=== PATIENT | male | born 1955 | race Caucasian/White ===

== ENCOUNTER → 2016-11-28 | Outpatient (CLI) | payer BC ==
--- NOTE | 2016-11-28 12:51 | CT ---
EXAMINATION TYPE: CT brain wo/w con DATE OF EXAM: 11/28/2016 12:39 PM COMPARISON: NONE HISTORY: Visual field defect. R/o pituitary tumor CT DLP: 2094.20 mGycm Automated exposure control for dose reduction was used. CONTRAST: CT scan of the head is performed , patient injected with 100 ml mL of Omnipaque 300. FINDINGS: There is no abnormal enhancing mass or midline shift identified. No evidence for pituitary macroadeno ma. Pituitary gland appears to be of normal size. The ventricles and sulci are within normal limits i n size. The globes are intact and the visualized sinuses are clear. Small mucous retention cyst righ t maxillary sinus. IMPRESSION: Negative contrast enhanced head CT exam.
== END | disposition home or self-care (01) ==
LOC: RADCTMAIN 12:07
PROVIDERS: ATTEND Ophthalmology
DX: H53.40 Unspecified visual field defects (principal)
CPT/HCPCS: 70470; Q9967